=== PATIENT | female | born 1955 | race Caucasian/White ===

== ENCOUNTER 2020-11-18 20:37 | Observation (INO) | payer MEDICARE, MEDICAID ==
[~2020-11-18] VITALS: Ht 167.6 cm; Wt 73.0 kg
--- NOTE | 2020-11-18 21:01 | PHYS DOC ---
Past History Past Medical History: Arthritis, Cancer, High Cholesterol, Hypertension Past Surgical History Lt.mastectomy 2014- cancer General Adult EDM: Chief Complaint: CHEST WALL PAIN HPI: HPI: ".. My Rt. neck and and chest are killing me.. this been going on a couple weeks... constant.. .. maybe total 2 months.. . I seen Dr. Garcia.. she gave me some pain meds..and muscle relaxer.. they have not help.... The chiropractor has not helped either...".. I am really worried about this chest pain..." Patient is a 65 year old female who presents with above hx and complaints of right pleuritic chest pain and back pain since 2 months ago. Has been taking anti-inflammatories and muscle relaxants prescribed by Dr. Garcia with no relie f. Patient does have significant history of :Lt. breast cancer with mastectomy in 2013, pt. also had radiation and chemotherapy. Pt. has hx hypertension, diabetes, elevated cholesterol. No previous cardiac history. No recent trauma. No recent travel. No specific ill contacts. Patient currently rates pain in right shoulder and back as 4-8 out of 10. Pain is worse with movement. Does have some upper neck tenderness and right shoulder scaphoid tenderness.. Does seem to have components of cervical neuropathy. Patient does have increased pain with deep breaths and cough on the right. No rash appreciated area of pain. Patient does have complaints of occasional palpitations. These appear to be PVCs on bedside monitor. Review of Systems: Review of Systems: Constitutional: Denies fever or chills Eyes: Denies change in visual acuity HENT: Denies nasal congestion or sore throat . Complaints of Rt neck pain. Respiratory: Denies cough or shortness of breath Cardiovascular: Complaint of Rt chest wall pain.. GI: Denies abdominal pain, nausea, vomiting, bloody stools or diarrhea : Denies dysuria Musculoskeletal: Some right flank back pain. Some obvious trapezius muscle spasms on the right. Integument: Denies rash Neurologic: Denies headache, focal weakness or sensory changes Endocrine: Denies polyuria or polydipsia Lymphatic: Denies swollen glands Psychiatric: Complaints of anxiety Family History: Family History: Noncontributory to presentation Current Medications: Current Meds: See nursing for home meds Allergies: Allergies: Allergies Coded Allergies Type Severity Reaction Last Updated Verified No Known Drug Allergies 11/18/20 No Physical Exam: PE: Constitutional: Patient reports acute distress, non-toxic appearance. [] HENT: Normocephalic, atraumatic, bilateral external ears normal, oropharynx moist, no oral exudates, nose normal. [] Eyes: PERRLA, EOMI, conjunctiva normal, no discharge. Glasses Neck: Normal range of motion, right trapezius muscle spasm and tenderness, supple, no stridor. [] Cardiovascular:Heart rate regular rhythm, no murmur. The patient [does occasionally have irregular beats which appear to be PVCs on bedside monitor] Lungs & Thorax: Bilateral breath sounds equal apex auscultation [. Has] left mastectomy scar Abdomen: Bowel sounds normal, soft, no tenderness, no masses, no pulsatile masses. Old scar Skin: Warm, dry, no erythema, no rash. Poor turgor Back: No tenderness, some right CVA tenderness. [] Extremities: No tenderness, no cyanosis, no clubbing, ROM intact, no edema. No cording appreciated Neurologic: Alert and oriented X 3, moves all extremities on request, does have distal sensory, no focal deficits noted. [] Psychologic: Affect very anxious, judgement normal, mood normal. [] EKG: EKG: My interpretation EKG shows a sinus rhythm at 79 bpm. Does have occasional PVCs and a right bundle branch block. QT interval is somewhat prolonged at 485 ms and QT intervals 422 ms. Overall morphology not consistent with a STEMI and does not have contralateral changes []20:49 My interpretation of the EKG #2 shows a sinus rhythm 71 bpm mild right bundle branch block no significant interval change from prior EKG. Time 0 122 Radiology/Procedures: Radiology/Procedures: [][address] [address] IMAGING REPORT Signed PATIENT: RADHA GRIFFITHS ACCOUNT: [id number] : 1955 LOCATION: ER AGE: 65 SEX: F EXAM STATUS: REG ER ORD. PHYSICIAN: FLOR ENGEL MD REASON: Pleuritic chest pain, H/O BREAST CA, D-DIMER 0.85 PROCEDURE: CT ANGIOGRAPHY CHEST EXAM: CT ANGIOGRAPHY OF THE CHEST WITH AND WITHOUT CONTRAST. HISTORY: Breast cancer, elevated d-dimer, chest pain. TECHNIQUE: Computed tomographic angiography of the chest was performed before and after the intravenous administration of iodinated contrast. 3-D maximum intensity projections were also performed. One or more of the following individualized dose reduction techniques were utilized for this examination: 1. Automated exposure control. 2. Adjustment of the mA and/or kV according to patient size. 3. Use of iterative reconstruction technique. COMPARISON: None. FINDINGS: Images of the upper abdomen reveal a 2.5 cm cyst in the right kidney. There is diffuse fatty atrophy of the pancreas. Bone windows reveal no suspicious lesions. No pulmonary emboli are identified. There is no aortic dissection or aneurysm. Changes of breast constipation therapy and axillary lymph node dissection are noted on the left. There are no pathologically enlarged mediastinal or axillary lymph nodes. There is no pleural or pericardial effusion. The left ventricle appears at least mildly dilated. A hypoattenuating nodule in the right thyroid lobe measures 1.1 cm. There is a small hiatal hernia. Lung windows reveal no infiltrates. A calcified granuloma is noted in the left upper lobe. IMPRESSION: 1. No pulmonary embolism. No acute process. 2. Small hiatal hernia. 3. 1.1 cm right thyroid nodule. This could be further assessed sonographically if there is persistent concern. Electronically signed by: Daniel Machado MD (11/19/2020 12:48 AM) [facility] DICTATED AND SIGNED BY: TRE MACHADO MD DATE: 11/19/2040 CC: FLOR ENGEL MD; NON,STAFF ~[place] [id number] IMAGING REPORT Signed PATIENT: RADHA GRIFFITHS ACCOUNT: [id number] : 1955 LOCATION: ER AGE: 65 SEX: F EXAM STATUS: REG ER ORD. PHYSICIAN: FLOR ENGEL MD REASON: cp PROCEDURE: PORTABLE CHEST 1V Exam: Chest one view INDICATION: Chest pain TECHNIQUE: Frontal view of the chest Comparisons: None FINDINGS: The cardiomediastinal silhouette and pulmonary vessels are within normal limits. The lung and pleural spaces are clear. Surgical clips of the left axilla noted. IMPRESSION: No acute cardiopulmonary process. Electronically signed by: David Kim MD (11/18/2020 10:51 PM) [facility] DICTATED AND SIGNED BY: DAVID KIM MD DATE: 11/18/20 8175 CC: FLOR ENGEL MD; NON,STAFF ~MTH0 0 Heart Score: HEART Score for Chest Pain: HEART Score for Chest Pain Response (Comments) Value History Moderately Suspicious 1 ECG Nonspecific Repolarizatio 1 Age > 65 2 Risk Factors 1 or 2 Risk Factors 1 Troponin < Normal Limit 0 Total 5 Risk Factors: Risk Factors: DM, Current or recent (<one month) smoker, HTN, HLP, family hist ory of CAD, obesity. Risk Scores: Score 0 - 3: 2.5% MACE over next 6 weeks - Discharge Home Score 4 - 6: 20.3% MACE over next 6 weeks - Admit for Clinical Observation Score 7 - 10: 72.7% MACE over next 6 weeks - Early Invasive Strategies Course & Med Decision Making: Course & Med Decision Making Pertinent Labs and Imaging studies reviewed. (See chart for details) Discussed presentation, testing and treatment plan with Dr. Galeana-admit to his service with cardiology consult. May be a candidate for MRI of the neck to further evaluate cervical neuropathy once cardiac issues clarified. UTI treated with a gram of Rocephin. Impression: 1. Chest Pain 2. DM glucose 174 3. Dysrhythmia-frequent PVCs 4. Cervical neuropathy 5. Elevated D-dimer 0.85 6. Elevated BUN and creatinine 22/1.1 7. UTI 8. Thyroid nodule 9. Hx.Breast Cancer-status post mastectomy on the left, Chemo and Radiation 10.Hx. Elevated cholesterol [] Dragon Disclaimer: Dragon Disclaimer: This electronic medical record was generated, in whole or in part, using a voice recognition dictation system. Dragon Disclaimer This chart was dictated in whole or in part using Voice Recognition software in a busy, high-work load, and often noisy Emergency Department environment. It may contain unintended and wholly unrecognized errors or omissions. FLOR ENGEL MD Nov 18, 2020 21:01
[2020-11-18] MEDS ORDERED: ASPIRIN 325 MG TABLET PO ONE (21:30)
[2020-11-18] MEDS: IV RINGERS SOLUTION,LACTATED 1,000 ML IV SCH (21:58)
[2020-11-18 22:11] LABS: BASO % 1 % (0-3); EOS % 1 % (0-3); HEMATOCRIT 42.9 % (36.0-47.0); HEMOGLOBIN 14.5 g/dL (12.0-15.5); LYMPH # 2.5 x10^3/uL (1.0-4.8); LYMPH % 33 % (24-48); MEAN CORPUSCULAR HEMOGLOBIN 31 pg (25-35); MEAN CORPUSCULAR HGB CONC 34 g/dL (31-37); MEAN CORPUSCULAR VOLUME 90 fL (79-100); MONO # 0.7 x10^3/uL (0.0-1.1); MONO % 9 % (0-9); NEUT # 4.2 x10^3uL (1.8-7.7); NEUT % 57 % (31-73); PLATELET COUNT 249 x10^3/uL (140-400); RED BLOOD COUNT 4.76 x10^6/uL (3.50-5.40); RED CELL DISTRIBUTION WIDTH 13.3 % (11.5-14.5); WHITE BLOOD COUNT 7.4 x10^3/uL (4.0-11.0)
[2020-11-18 22:20] LABS: CALCIUM 9.8 mg/dL (8.5-10.1); CREATININE 1.1 mg/dL (0.6-1.0); GFR 49.5; POTASSIUM 3.5 mmol/L (3.5-5.1)
[2020-11-18 22:23] LABS: BILIRUBIN,URINE NEG (NEG); CLARITY,URINE HAZY; COLOR,URINE YELLOW; GLUCOSE,URINE NEG (NEG); NITRITE,URINE POS (NEG); UROBILINOGEN,URINE 0.2 mg/dL (0.2 mg/dL)
[2020-11-18 22:24] LABS: BACTERIA,URINE MANY /HPF (0-FEW); RBC,URINE OCC /HPF (0-2); SQUAMOUS EPITHELIAL CELL,UR FEW /LPF
[2020-11-18 22:29] LABS: AMPHETAMINE/METHAMPHETAMINE NEG (NEG); BARBITURATES NEG (NEG); BENZODIAZEPINES NEG (NEG); CANNABINOIDS NEG (NEG); COCAINE NEG (NEG); METHADONE NEG (NEG); OPIATES NEG (NEG); PHENCYCLIDINE NEG (NEG)
[2020-11-18 22:32] LABS: ALBUMIN 3.8 g/dL (3.4-5.0); DIRECT BILIRUBIN 0.1 mg/dL (0.0-0.2); MAGNESIUM 1.9 mg/dL (1.8-2.4); TOTAL BILIRUBIN 0.3 mg/dL (0.2-1.0); TOTAL PROTEIN 7.3 g/dL (6.4-8.2)
--- NOTE | 2020-11-18 22:53 | RAD ---
Exam: Chest one view INDICATION: Chest pain TECHNIQUE: Frontal view of the chest Comparisons: None FINDINGS: The cardiomediastinal silhouette and pulmonary vessels are within normal limits. The lung and pleural spaces are clear. Surgical clips of the left axilla noted. IMPRESSION: No acute cardiopulmonary process. Electronically signed by: David Rosales MD (11/18/2020 10:51 PM) [facility]
[2020-11-18] MEDS ORDERED: ENOXAPARIN ** NOTE DOSE ** SYRINGE SQ ONE (23:00)
[2020-11-18] MEDS ORDERED: CONTRAST GIVEN. MC PRN (23:00)
[2020-11-18] MEDS ORDERED: KETOROLAC 30 MG/ML VIAL. IVP ONE (23:00)
[2020-11-18] MEDS ORDERED: cefTRIAXone SODIUM 1 GM VIAL ONE (23:02)
[2020-11-18] MEDS ORDERED: IV NORMAL SALINE 50ML 50 ML ONE (23:02)
[2020-11-18] MEDS ORDERED: IOHEXOL 350 MG/ML 100 ML VIAL. IV ONE (23:30)
--- NOTE | 2020-11-19 00:50 | RAD ---
EXAM: CT ANGIOGRAPHY OF THE CHEST WITH AND WITHOUT CONTRAST. HISTORY: Breast cancer, elevated d-dimer, chest pain. TECHNIQUE: Computed tomographic angiography of the chest was performed before and after the intraveno us administration of iodinated contrast. 3-D maximum intensity projections were also performed. One o r more of the following individualized dose reduction techniques were utilized for this examination: 1. Automated exposure control. 2. Adjustment of the mA and/or kV according to patient size. 3. Use of iterative reconstruction technique. COMPARISON: None. FINDINGS: Images of the upper abdomen reveal a 2.5 cm cyst in the right kidney. There is diffuse fatt y atrophy of the pancreas. Bone windows reveal no suspicious lesions. No pulmonary emboli are identified. There is no aortic dissection or aneurysm. Changes of breast constipation therapy and axillary lymph node dissection are noted on the left. Ther e are no pathologically enlarged mediastinal or axillary lymph nodes. There is no pleural or pericard ial effusion. The left ventricle appears at least mildly dilated. A hypoattenuating nodule in the rig ht thyroid lobe measures 1.1 cm. There is a small hiatal hernia. Lung windows reveal no infiltrates. A calcified granuloma is noted in the left upper lobe. IMPRESSION: 1. No pulmonary embolism. No acute process. 2. Small hiatal hernia. 3. 1.1 cm right thyroid nodule. This could be further assessed sonographically if there is persistent concern. Electronically signed by: Daniel Machado MD (11/19/2020 12:48 AM) [facility]
--- NOTE | 2020-11-19 00:54 | RAD ---
EXAM: CT CERVICAL SPINE WITHOUT CONTRAST. HISTORY: Neck pain. TECHNIQUE: Computed tomography of the cervical spine was performed without intravenous contrast. One or more of the following individualized dose reduction techniques were utilized for this examination: 1. Automated exposure control. 2. Adjustment of the mA and/or kV according to patient size. 3. Use of iterative reconstruction technique. COMPARISON: None. FINDINGS: Straightening of the normal lordosis is likely positional. The craniocervical junction is u nremarkable. No fractures are identified. Degenerative disc disease is mild from C5 through T1. There is no prevertebral soft tissue swelling. At C2-3, there is a small central protrusion. There is no stenosis. At C3-4, there is minimal right uncovertebral osteoarthritis. There is no significant stenosis. At C4-5, there is a small posterior disc bulge. There is no stenosis. At C5-6, there is a small right paracentral protrusion. Uncovertebral osteoarthritis is mild on the r ight. There is mild narrowing of the right lateral recess. At C6-7, there is a small posterior disc-osteophyte complex. Uncovertebral osteoarthritis is moderate bilaterally. Neural foraminal stenosis is mild bilaterally. There is a 1.1 cm hypoattenuating nodule in the right thyroid lobe. IMPRESSION: 1. Small disc protrusions at C2-3 and C5-C6 result in only mild right lateral recess narrowing at C5- 6. 2. Mild degenerative disc disease from C5 through T1. 3. A 1.1 cm right thyroid nodule could be further assessed sonographically if there is persistent con cern. Electronically signed by: Daniel Machado MD (11/19/2020 12:52 AM) [facility]
[2020-11-19] MEDS ORDERED: MORPHINE SULFATE 10 MG/ML SYRINGE. SQ ONE (01:00)
[2020-11-19] MEDS ORDERED: MORPHINE SULFATE 10 MG/ML SYRINGE. SQ PRN (01:45)
[2020-11-19] MEDS ORDERED: ACETAMINOPHEN 325 MG TABLET PO PRN (01:45)
[2020-11-19] MEDS ORDERED: ANTI-COAG MONITOR BY PHARMACY. MC PRN (02:15)
--- NOTE | 2020-11-19 02:26 | EKG ---
[address] [address] Test Date: 2020-11-18 Test Time: 20:49:25 Pat Name: RADHA GRIFFITHS Department: Room: Gender: F [employer]: : 1955 Requested By: FLOR ENGEL Order Number: [id number] Reading MD: Measurements Intervals [place] Rate: 79 P: 138 TN: 176 QRS: 39 QRSD: 96 T: 19 QT: 422 QTc: 485 Interpretive Statements SINUS RHYTHM VENTRICULAR PREMATURE COMPLEX(ES) INCOMPLETE RIGHT BUNDLE BRANCH BLOCK PROLONGED QT ABNORMAL ECG RI6.02 No previous ECG available for comparison
[2020-11-19 02:30] VITALS: BP 172/100
--- NOTE | 2020-11-19 02:30 | NUR ---
The patient, RADHA GRIFFITHS, 65 y/o, F admitted by MARIALUISA RIDER MD, to room 111, was given written information regarding hospital policies, unit procedures and contact persons. Valuables were checked and left with the patient. Pt needs assessed, medications reviewed, medical history discussed and pt oriented to room. Upon arrival pt rated pain 10/10 in right shoulder, "radiating down arm and arm feels numb." Tylenol administered with ice water. Pt vomiting and c/o headache. Zofran administered. Heating pad for shoulder and cold washcloths for face given to pt. Will continue to monitor.
--- NOTE | 2020-11-19 02:34 | EKG ---
[address] [address] Test Date: 2020-11-19 Test Time: 01:22:08 Pat Name: RADHA GRIFFITHS Department: Room: Gender: F [employer]: ULYSSES : 1955 Requested By: FLOR ENGEL Order Number: [id number] Reading MD: Measurements Intervals [place] Rate: 71 P: 0 AL: 192 QRS: 62 QRSD: 94 T: 2 QT: 430 QTc: 473 Interpretive Statements SINUS RHYTHM INCOMPLETE RIGHT BUNDLE BRANCH BLOCK NO SPECIFIC ECG ABNORMALITIES RI6.02 Compared to ECG 11/18/2020 20:49:25 Prolonged QT interval no longer present
[2020-11-19] MEDS: ONDANSETRON PF 4 MG/2 ML VIAL. IVP PRN ×3 (02:41→20:52)
[2020-11-19] MEDS: IV RINGERS SOLUTION,LACTATED 1,000 ML IV SCH (02:42)
[2020-11-19 05:10] VITALS: BP 140/87
[2020-11-19] MEDS ORDERED: CALC500T54 PO (06:35)
[2020-11-19] MEDS ORDERED: ASPI-889 PO (06:35)
[2020-11-19] MEDS ORDERED: HYDR12.572 PO (06:35)
[2020-11-19] MEDS ORDERED: CHOL200044 PO (06:35)
[2020-11-19] MEDS ORDERED: ACET500T68 PO (06:35)
[2020-11-19] MEDS ORDERED: POTA10TA PO (06:35)
[2020-11-19] MEDS ORDERED: ANAS1TAB47 PO (06:35)
[2020-11-19] MEDS ORDERED: PRAV20TA2 PO (06:35)
[2020-11-19] MEDS ORDERED: METO25TA4 PO (06:35)
[2020-11-19] MEDS: ENOXAPARIN ** NOTE DOSE ** SYRINGE SQ SCH ×2 (07:41→20:09)
[2020-11-19] MEDS: METOCLOPRAMIDE HCL 10 MG/2 ML VIAL. IVP SCH ×4 (07:41→20:10)
[2020-11-19] MEDS: ORPHENADRINE CITRATE 60 MG/2 ML VIAL. IV SCH ×2 (07:42→20:11)
[2020-11-19 10:57] VITALS: BP 104/62
[2020-11-19 11:00] LABS: THYROID STIM HORMONE (TSH) 1.436 uIU/mL (0.358-3.740)
[2020-11-19] MEDS: ASPIRIN CHEWABLE 81 MG TABLET. PO SCH (11:13)
[2020-11-19] MEDS ORDERED: ACETAMINOPHEN 500 MG TABLET PO PRN (14:45)
--- NOTE | 2020-11-19 15:01 | RAD ---
EXAM: CT Head without IV contrast INDICATION: Reason: recurrent bouts of nausea and vomiting, dizziness / Spl. Instructions: / History : TECHNIQUE: Multi-detector row CT images were obtained of the head without the use of IV contrast. All CT scans performed at this facility utilize dose optimization techniques as appropriate to the exam, including the following: Automated exposure control and adjustment of the mA and/or KV according to patient size (this includes techniques or standardized protocols for targeted exams where dose is ind ication/reason for exam). COMPARISON: None FINDINGS: BRAIN PARENCHYMA: No evidence of acute intraparenchymal hemorrhage or infarct. No abnormal parenchyma l density or mass. VENTRICLES & EXTRA-AXIAL SPACES: Ventricles are within normal limits. Basilar cisterns are patent. N o pathologic extra-axial fluid collection or mass. ORBITS: Orbital contents are unremarkable. SINUSES: Visualized paranasal sinuses and mastoid air cells are clear. OSSEOUS & SOFT TISSUES: Calvarium and skull base are intact. IMPRESSION: No acute intracranial pathology. Electronically signed by: Ethel Dacosta MD (11/19/2020 2:59 PM) [facility] [place]
--- NOTE | 2020-11-19 15:08 | HP ---
ADMIT DATE: 11/19/2020 HISTORY OF PRESENT ILLNESS: The patient is a 65-year-old female patient who came to the Emergency Room with a complaint of right-sided chest pain and back pain that started about 2 months ago, has been seen by Dr. Garcia and was treated with anti-inflammatory medication, muscle relaxant as well as steroids without any relief. The patient has a history of left breast cancer with mastectomy in 2013 that was subsequently treated with radiation and chemotherapy. She was extensively investigated in the Emergency Room and apparently has elevated D-dimer and therefore, she had had a chest x-ray, which was unremarkable. CT scan of the chest showed no evidence of pulmonary emboli, small hiatal hernia and CT scan of the cervical spine showed small disk protrusion at C2-C3 and C5-C6 with resultant only mild right lateral recess and narrowing at C5-C6, mild degenerative disk disease from C5 through T1. The patient also was admitted and has had 3 sets of troponin that ruled out myocardial infarction. However, as the pain continues and has been there for almost 2 months now, ____ is obviously noncardiac. I decided to do investigate this further as the breast cancer might be significant and she might have metastases. PAST MEDICAL HISTORY: Significant for hypertension, hyperlipidemia as well as breast cancer. PAST SURGICAL HISTORY: Significant with left mastectomy as well as radiation and chemotherapy. She has 2 cysts removed from both feet and she has also colonoscopy. ALLERGIES: She has no known drug allergies. MEDICATIONS: She is currently on anastrozole 1 mg daily, pravastatin sodium 20 mg daily, metoprolol tartrate 25 mg twice a day, aspirin 81 mg once a day, Tylenol 500 mg every 6 hours, calcium carbonate 500 mg daily, potassium chloride 10 mEq once a day, hydrochlorothiazide 25 mg once a day and cholecalciferol (vitamin D3) 50 mcg twice a day. FAMILY HISTORY: She has 6 brothers and 7 sisters, 2 brothers who are , one of COPD and the other of AIDS. Her father at the age of 82 because of Alzheimer disease. Mother is still alive at age 91, and she has also had Alzheimer disease and lives in a half-way. SOCIAL HISTORY: She is , has 2 sons and 1 daughter where her younger son of sarcoma. She does not smoke, drink alcohol or use recreational drugs. 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 REVIEW OF SYSTEMS: The patient denied any blurring of vision, cataract, glaucoma or macular degeneration. Denied any earache, tinnitus or sensorineural deafness. Denied any nosebleeds, stuffy nose or postnasal drip. Denied any sore throat, sore tongue, toothache, hoarseness of voice or difficulty swallowing. Denied any nausea, vomiting, diarrhea or constipation. Denied any hematemesis, melena or hematochezia. Denied any dysuria, frequency or hematuria. Did complain of right-sided chest pain. Denied any cough, phlegm or hemoptysis. Denied any orthopnea or paroxysmal nocturnal dyspnea. Denied any dizziness, lightheadedness, or vertigo. PHYSICAL EXAMINATION: GENERAL: When I examined her, she looked well and was clearly in no apparent respiratory distress. No pallor, jaundice, cyanosis or thyromegaly. No jugular venous distension. No limb edema. VITAL SIGNS: Her heart rate was 75, blood pressure 172/100, temperature 98.2, respiratory rate was 16, and oxygen saturation was 96%. HEAD, EYES, EARS, NOSE AND THROAT: Normocephalic and atraumatic. NECK: Supple. HEART: Showed normal first and second heart sounds. No gallop or murmur. CHEST: Clear to auscultation. No crepitation or rhonchi. ABDOMEN: Distended, soft, nontender. NEUROLOGIC: She was awake, alert, responding appropriately. All cranial nerves intact. EXTREMITIES: She moves extremities without difficulty. She ambulates without assistance or assistive devices. LABORATORY DATA: Showed that her white cell count was 7400, hemoglobin 14.5, hematocrit 43, MCV 90, and platelet count 249,000 with normal manual differential. Her prothrombin time, INR and aPTT normal. D-dimer was 0.85. Serum sodium 143, potassium 3.5, chloride 101, bicarbonate 32, anion gap of 10, BUN 22, creatinine 1.1, estimated GFR was 49 mL per minute. Her glucose 171, calcium was 9.8, magnesium was 1.9. Total bilirubin, AST, ALT were normal. Alkaline phosphatase slightly elevated. Her total protein was 7.3, albumin was 3.8 and lipase 161. She has 3 sets of cardiac enzymes that were negative. Her serum triglycerides 184, total cholesterol 193, LDL cholesterol 101, VLDL was 36, HDL was 56 and the ratio was 3. Her TSH was 1.436. Her urinalysis was essentially unremarkable and toxic screen was essentially negative. ASSESSMENT AND PLAN: In summary, this is a 65-year-old female patient who came to the Emergency Room complaining of right-sided chest pain that has been going on for almost 2 months now and has not responded to anti-inflammatory medication and muscle relaxant. She has 3 sets of cardiac enzymes that ruled out myocardial infarction. Although, her D-dimer was high, there is no evidence of pulmonary emboli, nor there is any abnormality within her chest to explain that. Given the fact that she has had breast cancer, I recommend doing a total body bone scan. I also ordered a CT scan of the head to rule out any brain metastases that might explain why she is having recurrent bouts of nausea, vomiting and abdominal ultrasound. MARIALUISA RIDER MD DR: ANAHI/deborah JOB#: [id number] / [id number]
[2020-11-19 15:44] VITALS: BP 156/73
[2020-11-19] MEDS: CHOLECALCIFEROL (VITAMIN D3) 1,000 UNIT TABLET PO SCH (19:44)
[2020-11-19 20:02] VITALS: BP 149/76
[2020-11-19] MEDS: METOPROLOL TART IMMED RELEASE 25 MG TABLET. PO SCH (20:12)
[2020-11-19] MEDS: ATORVASTATIN CALCIUM 10 MG TABLET. PO SCH (20:12)
[2020-11-19 22:19] VITALS: BP 158/74
[2020-11-20 06:01] VITALS: BP 156/84
[2020-11-20 06:38] LABS: BASO % 1 % (0-3); EOS % 0 % (0-3); HEMATOCRIT 43.7 % (36.0-47.0); HEMOGLOBIN 14.9 g/dL (12.0-15.5); LYMPH # 1.3 x10^3/uL (1.0-4.8); LYMPH % 20 % (24-48); MEAN CORPUSCULAR HEMOGLOBIN 31 pg (25-35); MEAN CORPUSCULAR HGB CONC 34 g/dL (31-37); MEAN CORPUSCULAR VOLUME 90 fL (79-100); MONO # 0.4 x10^3/uL (0.0-1.1); MONO % 6 % (0-9); NEUT # 4.8 x10^3uL (1.8-7.7); NEUT % 74 % (31-73); PLATELET COUNT 277 x10^3/uL (140-400); RED BLOOD COUNT 4.84 x10^6/uL (3.50-5.40); RED CELL DISTRIBUTION WIDTH 12.9 % (11.5-14.5); WHITE BLOOD COUNT 6.6 x10^3/uL (4.0-11.0)
[2020-11-20 06:43] LABS: ALBUMIN 3.8 g/dL (3.4-5.0); ALBUMIN/GLOBULIN RATIO 1.2 (1.0-1.7); CALCIUM 9.7 mg/dL (8.5-10.1); CREATININE 1.1 mg/dL (0.6-1.0); GFR 49.5; POTASSIUM 3.5 mmol/L (3.5-5.1); TOTAL BILIRUBIN 0.6 mg/dL (0.2-1.0); TOTAL PROTEIN 7.1 g/dL (6.4-8.2)
--- NOTE | 2020-11-20 07:48 | PDOC2 ---
CARDIAC CONSULT DATE OF CONSULT DOS: DATE: 11/20/20 TIME: 07:42 REASON FOR CONSULT Reason for Consult Chest pain REFERRING PHYSICIAN Referring Physician Dr. Sandoval SOURCE Source: Chart review, Patient HPI History of Present Illness This is a 65 yo female who presented secondary to right chest and upper back pain. Patient reports this has been constant for the last couple of weeks. Was treated with steroids, muscle relaxers, and antiinflammatories without any significant relief. Saw chiropractor last week and pain improved slightly. Pain then returned so she came into the ED for further evaluation and treatment. Pain seems to improve by laying on her right side. Not worse with deep breathing or with certain movement. Right upper arm was initially numb/tingling, but this has resolved. St cervical spine with small disc protrusions at C2-3 and C5-C6. She denies any associated dizziness, diaphoresis, palpitations, or SOA. Does reports some nausea/vomiting since Friday, which has now resolved. No prior h/o CAD. Does have a history of breast CA s/p right mastectomy in 2013. Underwent chemo and radiation therapy. PAST MEDICAL HISTORY Cardiovascular: HTN, hyperipidemia Heme/Onc: Cancer (breast ) PAST SURGICAL HISTORY Past Surgical History: Other (left mastectomy ) FAMILY HISTORY Family History: Other (Dementia ) SOCIAL HISTORY Smoke: No ALCOHOL: none Drugs: None Lives: with Family CURRENT MEDICATIONS Current Medications Current Medications Aspirin (Kathy Aspirin) 325 mg 1X ONCE PO Last administered on 11/18/20at 21:56; Start 11/18/20 at 21:30; Stop 11/18/20 at 21:31; Status DC Lactated Ringer's 1,000 ml @ 100 mls/hr Q10H IV Last administered on 11/19/20at 02:42; Start 11/18/20 at 21:30; Stop 11/19/20 at 07:29; Status DC Enoxaparin Sodium (Lovenox 80mg Syringe) 80 mg 1X ONCE SQ Last administered on 11/18/20at 23:09; Start 11/18/20 at 23:00; Stop 11/18/20 at 23:01; Status DC Ketorolac Tromethamine (Toradol 30mg Vial) 30 mg 1X ONCE IVP Last administered on 11/18/20at 23:08; Start 11/18/20 at 23:00; Stop 11/18/20 at 23:01; Status DC Ceftriaxone Sodium 1 gm/ Sodium Chloride 50 ml @ 100 mls/hr 1X ONCE IV Last administered on 11/18/20at 23:09; Start 11/18/20 at 23:00; Stop 11/18/20 at 23:29; Status DC Iohexol (Omnipaque 350 Mg/ml) 100 ml 1X ONCE IV Last administered on 11/19/20at 00:00; Start 11/18/20 at 23:30; Stop 11/18/20 at 23:31; Status DC Info (Do NOT chart on this entry -- for MONITORING) 1 each PRN DAILY PRN MC SEE COMMENTS; Start 11/18/20 at 23:00; Stop 11/20/20 at 22:59 Sodium Chloride 50 ml @ As Directed STK-MED ONCE .ROUTE ; Start 11/18/20 at 23:02; Stop 11/18/20 at 23:02; Status DC Ceftriaxone Sodium (Rocephin) 1 gm STK-MED ONCE .ROUTE ; Start 11/18/20 at 23:02; Stop 11/18/20 at 23:02; Status DC Morphine Sulfate (Morphine 10mg Syringe) 10 mg 1X ONCE SQ Last administered on 11/19/20at 01:00; Start 11/19/20 at 01:00; Stop 11/19/20 at 01:01; Status DC Ondansetron HCl (Zofran) 4 mg PRN Q4HRS PRN IVP NAUSEA/VOMITING Last administered on 11/19/20at 20:52; Start 11/19/20 at 01:45; Stop 11/20/20 at 01:44; Status DC Acetaminophen (Tylenol) 650 mg PRN Q4HRS PRN PO FEVER > 100.3'F Last administered on 11/19/20at 02:41; Start 11/19/20 at 01:45; Stop 11/19/20 at 14:55; Status DC Enoxaparin Sodium (Lovenox 80mg Syringe) 80 mg Q12HR SQ Last administered on 11/19/20at 20:09; Start 11/19/20 at 09:00 Morphine Sulfate (Morphine 10mg Syringe) 10 mg QIDPRN PRN SQ pain Last administered on 11/19/20at 06:15; Start 11/19/20 at 01:45 Orphenadrine Citrate (Norflex) 30 mg BID IV Last administered on 11/19/20at 20:11; Start 11/19/20 at 09:00 Aspirin (Aspirin Chewable) 81 mg DAILYWBKFT PO ; Start 11/19/20 at 08:00 Info (Anti-Coagulation Monitoring By Pharmacy) 1 each PRN DAILY PRN MC SEE COMMENTS; Start 11/19/20 at 02:15 Metoclopramide HCl (Reglan Vial) 10 mg QIDACHS IVP Last administered on 11/19/20at 20:10; Start 11/19/20 at 07:30 Acetaminophen (Tylenol) 500 mg PRN Q6HRS PRN PO pain or fever; Start 11/19/20 at 14:45 Anastrozole (Arimidex) 1 mg DAILY PO ; Start 11/20/20 at 09:00 Aspirin (Aspirin Enteric Coated) 81 mg DAILY PO ; Start 11/20/20 at 09:00 Hydrochlorothiazide (Microzide) 25 mg DAILY PO ; Start 11/20/20 at 09:00 Metoprolol Tartrate (Lopressor) 25 mg BID PO Last administered on 11/19/20at 20:12; Start 11/19/20 at 21:00 Calcium Carbonate/ Glycine (Oscal) 500 mg DAILY PO ; Start 11/20/20 at 09:00 Vitamin D (Vitamin D3) 2,000 unit BID PO ; Start 11/19/20 at 21:00 Potassium Chloride (Klor-Con) 10 meq DAILY PO ; Start 11/20/20 at 09:00 Atorvastatin Calcium (Lipitor) 5 mg QHS PO ; Start 11/19/20 at 21:00 Active Scripts Active Reported Acetaminophen 500 Mg Tablet 1 Tab PO PRN Q6HRS PRN 15 Days Calcium (Calcium Carbonate) 500 Mg Tab.chew 500 Mg PO DAILY Aspirin Ec (Aspirin) 81 Mg Tablet.dr 1 Tab PO DAILY D3-2000 (Cholecalciferol (Vitamin D3)) 50 Mcg Capsule 50 Mcg PO BID Arimidex (Anastrozole) 1 Mg Tablet 1 Tab PO DAILY 30 Days K-Tab (Potassium Chloride) 10 Meq Tablet.er 10 Meq PO DAILY Pravastatin Sodium 20 Mg Tablet 1 Tab PO DAILY Metoprolol Tartrate 25 Mg Tablet 1 Tab PO BID Hydrochlorothiazide Capsule (Hydrochlorothiazide) 12.5 Mg Capsule 25 Mg PO DAILY ALLERGIES Allergies: Coded Allergies: No Known Drug Allergies (Unverified , 11/18/20) ROS Review of Systems 14 point ROS conducted with pertinent positives noted above in HPI PHYSICAL EXAM General: Alert, Oriented X3, Cooperative, No acute distress HEENT: Atraumatic, Mucous membr. moist/pink Lungs: Clear to auscultation Heart: Regular rate Abdomen: Soft, No tenderness Extremities: No edema, Normal pulses Skin: No breakdown Neuro: Normal speech, Sensation intact Psych/Mental Status: Mental status NL, Mood NL MUSCULOSKELETAL: Osteoarthritic changes both hands VITALS Vital Signs Vital Signs Date Time Temp Pulse Resp B/P (MAP) Pulse Ox O2 Delivery O2 Flow Rate FiO2 11/20/20 06:01 98.3 88 20 156/84 (108) 95 Room Air LABS LABS Laboratory Tests Test 11/18/20 21:45 11/18/20 21:50 11/19/20 00:34 11/19/20 03:32 Urine Collection Type Unknown Urine Color Yellow Urine Clarity Hazy Urine pH 7.0 Urine Specific [place] 1.020 Urine Protein Neg (NEG-TRACE) Urine Glucose (UA) Neg mg/dL (NEG) Urine Ketones (Stick) Neg mg/dL (NEG) Urine Blood Trace (NEG) Urine Nitrite Pos (NEG) Urine Bilirubin Neg (NEG) Urine Urobilinogen Dipstick 0.2 mg/dL (0.2 mg/dL) Urine Leukocyte Esterase Small (NEG) Urine RBC Occ /HPF (0-2) Urine WBC 5-10 /HPF (0-4) Urine Squamous Epithelial Cells Few /LPF Urine Bacteria Many /HPF (0-FEW) Urine Opiates Screen Neg (NEG) Urine Methadone Screen Neg (NEG) Urine Barbiturates Neg (NEG) Urine Phencyclidine Screen Neg (NEG) Urine Amphetamine/Methamphetamine Neg (NEG) Urine Benzodiazepines Screen Neg (NEG) Urine Cocaine Screen Neg (NEG) Urine Cannabinoids Screen Neg (NEG) Urine Ethyl Alcohol Neg (NEG) White Blood Count 7.4 x10^3/uL (4.0-11.0) Red Blood Count 4.76 x10^6/uL (3.50-5.40) Hemoglobin 14.5 g/dL (12.0-15.5) Hematocrit 42.9 % (36.0-47.0) Mean Corpuscular Volume 90 fL (79-100) Mean Corpuscular Hemoglobin 31 pg (25-35) Mean Corpuscular Hemoglobin Concent 34 g/dL (31-37) Red Cell Distribution Width 13.3 % (11.5-14.5) Platelet Count 249 x10^3/uL (140-400) Neutrophils (%) (Auto) 57 % (31-73) Lymphocytes (%) (Auto) 33 % (24-48) Monocytes (%) (Auto) 9 % (0-9) Eosinophils (%) (Auto) 1 % (0-3) Basophils (%) (Auto) 1 % (0-3) Neutrophils # (Auto) 4.2 x10^3uL (1.8-7.7) Lymphocytes # (Auto) 2.5 x10^3/uL (1.0-4.8) Monocytes # (Auto) 0.7 x10^3/uL (0.0-1.1) Eosinophils # (Auto) 0.0 x10^3/uL (0.0-0.7) Basophils # (Auto) 0.0 x10^3/uL (0.0-0.2) Prothrombin Time 9.4 SEC (9.4-11.4) Prothromb Time International Ratio 0.9 (0.9-1.1) Activated Partial Thromboplast Time < 21 SEC (23-33) D-Dimer (Razia) 0.85 mg/L (0.00-0.50) Sodium Level 143 mmol/L (136-145) Potassium Level 3.5 mmol/L (3.5-5.1) Chloride Level 101 mmol/L (98-107) Carbon Dioxide Level 32 mmol/L (21-32) Anion Gap 10 (6-14) Blood Urea Nitrogen 22 mg/dL (7-20) Creatinine 1.1 mg/dL (0.6-1.0) Estimated GFR (Cockcroft-Gault) 49.5 Glucose Level 171 mg/dL (70-99) Calcium Level 9.8 mg/dL (8.5-10.1) Magnesium Level 1.9 mg/dL (1.8-2.4) Total Bilirubin 0.3 mg/dL (0.2-1.0) Direct Bilirubin 0.1 mg/dL (0.0-0.2) Aspartate Amino Transf (AST/SGOT) 24 U/L (15-37) Alanine Aminotransferase (ALT/SGPT) 36 U/L (14-59) Alkaline Phosphatase 160 U/L (46-116) Creatine Kinase 39 U/L (26-192) Troponin I Quantitative < 0.017 ng/mL (0-0.055) < 0.017 ng/mL (0-0.055) 0.018 ng/mL (0-0.055) DE-Inb-Z-Type Natriuretic Peptide 336 pg/mL (0-124) Total Protein 7.3 g/dL (6.4-8.2) Albumin 3.8 g/dL (3.4-5.0) Triglycerides Level 187 mg/dL (0-150) Cholesterol Level 193 mg/dL (0-200) LDL Cholesterol, Calculated 99 mg/dL (0-100) VLDL Cholesterol, Calculated 37 mg/dL (0-40) Non-HDL Cholesterol Calculated 136 mg/dL (0-129) HDL Cholesterol 57 mg/dL (40-60) Cholesterol/HDL Ratio 3.0 Lipase 161 U/L (73-393) Thyroid Stimulating Hormone (TSH) 1.436 uIU/mL (0.358-3.740) Test 11/20/20 05:50 White Blood Count 6.6 x10^3/uL (4.0-11.0) Red Blood Count 4.84 x10^6/uL (3.50-5.40) Hemoglobin 14.9 g/dL (12.0-15.5) Hematocrit 43.7 % (36.0-47.0) Mean Corpuscular Volume 90 fL (79-100) Mean Corpuscular Hemoglobin 31 pg (25-35) Mean Corpuscular Hemoglobin Concent 34 g/dL (31-37) Red Cell Distribution Width 12.9 % (11.5-14.5) Platelet Count 277 x10^3/uL (140-400) Neutrophils (%) (Auto) 74 % (31-73) Lymphocytes (%) (Auto) 20 % (24-48) Monocytes (%) (Auto) 6 % (0-9) Eosinophils (%) (Auto) 0 % (0-3) Basophils (%) (Auto) 1 % (0-3) Neutrophils # (Auto) 4.8 x10^3uL (1.8-7.7) Lymphocytes # (Auto) 1.3 x10^3/uL (1.0-4.8) Monocytes # (Auto) 0.4 x10^3/uL (0.0-1.1) Eosinophils # (Auto) 0.0 x10^3/uL (0.0-0.7) Basophils # (Auto) 0.0 x10^3/uL (0.0-0.2) Sodium Level 141 mmol/L (136-145) Potassium Level 3.5 mmol/L (3.5-5.1) Chloride Level 101 mmol/L (98-107) Carbon Dioxide Level 29 mmol/L (21-32) Anion Gap 11 (6-14) Blood Urea Nitrogen 15 mg/dL (7-20) Creatinine 1.1 mg/dL (0.6-1.0) Estimated GFR (Cockcroft-Gault) 49.5 BUN/Creatinine Ratio 14 (6-20) Glucose Level 197 mg/dL (70-99) Calcium Level 9.7 mg/dL (8.5-10.1) Total Bilirubin 0.6 mg/dL (0.2-1.0) Aspartate Amino Transf (AST/SGOT) 22 U/L (15-37) Alanine Aminotransferase (ALT/SGPT) 32 U/L (14-59) Alkaline Phosphatase 99 U/L (46-116) C-Reactive Protein 1.0 mg/L (0-3.3) Total Protein 7.1 g/dL (6.4-8.2) Albumin 3.8 g/dL (3.4-5.0) Albumin/Globulin Ratio 1.2 (1.0-1.7) ASSESSMENT/PLAN Assessment/Plan 1. Chest pain, atypical. AMI ruled out 2. Nausea/vomiting; CT head without acute findings. abdominal US today 3. Hypertension; mildly elevated 4. Hyperlipidemia; LDL 99 5. H/o breast CA s/p left mastectomy 6. Elevated d-dimer. CTA negative for PE 7. UTI; as per IM Recommendations Outpatient echo and ischemic evaluation as arranged Follow up in our office with Dr. Bowman as scheduled. CJ WALTER APRN Nov 20, 2020 07:48
[2020-11-20] MEDS: ENOXAPARIN ** NOTE DOSE ** SYRINGE SQ SCH ×2 (08:23→21:04)
[2020-11-20] MEDS: METOCLOPRAMIDE HCL 10 MG/2 ML VIAL. IVP SCH ×4 (08:23→21:04)
[2020-11-20] MEDS: ORPHENADRINE CITRATE 60 MG/2 ML VIAL. IV SCH ×2 (08:24→21:04)
[2020-11-20] MEDS: POTASSIUM CHLORIDE 10 MEQ TABLET.ER. PO SCH (08:30)
[2020-11-20] MEDS: METOPROLOL TART IMMED RELEASE 25 MG TABLET. PO SCH ×2 (08:30→21:05)
[2020-11-20] MEDS: CALCIUM CARBONATE 500 MG TABLET PO SCH (08:30)
[2020-11-20] MEDS: CHOLECALCIFEROL (VITAMIN D3) 1,000 UNIT TABLET PO SCH ×2 (08:30→21:05)
[2020-11-20] MEDS: ASPIRIN ENTERIC COATED 81 MG TABLET.DR. PO SCH (08:30)
[2020-11-20] MEDS: ASPIRIN CHEWABLE 81 MG TABLET. PO SCH (08:30)
[2020-11-20] MEDS: hydroCHLOROthiazide 12.5 MG CAPSULE PO SCH (08:31)
[2020-11-20] MEDS: ANASTROZOLE 1 MG TABLET PO SCH (08:31)
[2020-11-20 10:42] VITALS: BP 153/88
--- NOTE | 2020-11-20 13:04 | RAD ---
EXAM: Limited ABDOMINAL ULTRASOUND. HISTORY: Right shoulder pain and nausea. COMPARISON: None. FINDINGS: Sonographic evaluation of the right upper quadrant abdomen was performed. The liver appears normal in parenchymal echotexture. There are no focal lesions.. Normal directional flow in the main portal vein. The gallbladder is unremarkable without evidence of stones, wall thickening or pericholecystic fluid. There is no sonographic Crocker sign. The common duct measures 4 mm. The visualized portions of the p ancreas reveal no abnormality. The right kidney measures 10.2 x 5.9 x 3.9 cm. Cortical thickness and echogenicity are preserved. The re is no hydronephrosis. There is a superior pole cortical cyst measuring 2.5 x 2.7 x 2.1 cm The visualized portions of the inferior vena cava are grossly patent and normal in caliber. IMPRESSION: 1. Right renal cyst of doubtful clinical significance. Otherwise unremarkable examination of the righ t upper quadrant abdomen. No sonographic evidence of hepatobiliary pathology. Electronically signed by: Ethel Dacosta MD (11/20/2020 1:02 PM) [id number]
[2020-11-20 15:00] VITALS: BP 152/88
--- NOTE | 2020-11-20 18:21 | PN ---
DATE: 11/20/2020 SUBJECTIVE: The patient continued to complaint of pain in her right shoulder, right sided chest wall and posteriorly in the right neck. We have done extensive investigation that was unrevealing and arrangement was made for her to have abdominal ultrasound that was done this morning and showed that the liver appears normal in parenchymal echotexture, there are no focal lesion. Normal directional flow in the main portal vein. The gallbladder is unremarkable without evidence of stones, wall thickening or pericholecystic fluid. There is no sonographic Crocker sign. The common duct measures 4 mm. The visualized portion of the pancreas revealed no abnormality. The right kidney measures 10 x 5 x 3 cm cortical thickness and echogenicity are preserved. There is no hydronephrosis. There is a superior pole cortical cyst measuring 2.5 x 2.7 x 2.1 cm. The visualized portion of the inferior vena cava are grossly patent and normal in caliber. We did arrange for total body bone scan given that she has history of breast cancer. She continued to be on anastrozole. Apparently, the bone scan is scheduled today this evening. When I examined her this afternoon, she looked well and was clearly in no apparent respiratory distress. No pallor, jaundice, cyanosis or thyromegaly. No jugular venous distension. No limb edema. PHYSICAL EXAMINATION: VITAL SIGNS: Her heart rate was 86, blood pressure was 153/88, temperature was 98, respiratory rate was 18 and oxygen saturation was 95%. HEENT: Normocephalic, atraumatic. NECK: Supple. HEART: Showed normal first and second heart sounds. No gallop or murmur. CHEST: Clear to auscultation. No crepitation or rhonchi, ABDOMEN: Distended, soft, nontender. NEUROLOGIC: She is grossly intact. LABORATORY DATA: Lab work this morning showed a white cell count 6,600, hemoglobin 14.9, hematocrit 44, MCV 90 and platelet count 277,000. Her serum sodium was 141, potassium 3.5, chloride 101, bicarbonate 29, anion gap of 11, BUN 15, creatinine 1.1, estimated GFR was 49 mL per minute. Her glucose 197, calcium was 9.7. Total bilirubin, AST, ALT, alkaline phosphatase were normal. Total protein 7.1, albumin was 3.8. ASSESSMENT: Right shoulder pain and right chest wall pain, right neck pain with unrevealing multiple imaging modalities. The patient is scheduled for total body bone scan and if it was unrevealing, then the patient can be discharged home to follow the Cardiology team for outpatient ischemic workup if there is evidence of metastatic disease. We will arrange for her to be followed by the oncologist. MARIALUISA RIDER MD DR: ANAHI/deborah JOB#: [id number] / [id number]
--- NOTE | 2020-11-20 19:25 | RAD ---
Nuclear medicine whole body bone scan History: Right scapula and chest wall pain. Breast cancer. Comparison: CT angiogram chest 11/19/2020. Technique: Examination performed after intravenous administration of 22 mCi Technetium 99m MDP. Imag es of the whole body were obtained in the anterior and posterior projections. Findings: There is focal increased tracer uptake at the medial right clavicle. Mild sclerosis is seen on CT. There is punctate increased tracer uptake near the tip of the right scapula. No correlate is seen on CT. Alternatively the uptake could localize to a right lateral rib. A tiny sclerotic density is noted of the right lateral seventh rib on CT, image 84 of series 4. There is minimal increased tracer uptake of what is probably the L1 vertebral body. There is endplate spurring noted on CT but no loss of vertebral body height or bone lesion. There is increased tracer uptake that is moderate on the right and mild on the left of the L5 vertebr al body. This uptake is nonspecific but in this location is often due to facet hypertrophy. Tracer uptake in pelvic bones is symmetric. Tracer uptake in the extremities is unremarkable. Mild pe riarticular right greater than left shoulder tracer uptake is likely degenerative. Tracer distribution in the soft tissues appears physiologic. Impression: 1. There is increased tracer uptake of the L5 vertebral body on the right and the left. There is mil d increased tracer uptake of what is probably the L1 vertebral body. Recommend correlation with CT jerrod mbar spine. 2. There is focal increased tracer uptake and mild sclerosis of the medial right clavicle. 3. There is punctate increased tracer uptake of a right lateral rib or the tip of the right scapula. A possible correlate for the uptake in the right lateral seventh rib is seen on CT. Electronically signed by: Sanya Winkler MD (11/20/2020 7:22 PM) [facility]
[2020-11-20 20:23] VITALS: BP 157/94
[2020-11-20] MEDS: ATORVASTATIN CALCIUM 10 MG TABLET. PO SCH (21:04)
[2020-11-20 22:35] VITALS: BP 146/97
--- NOTE | 2020-11-21 05:28 | NUR ---
NOTIFIED OF BONE SCAN RESULTS. STATED HE WILL BE IN IN THE MORNING TO REVIEW RESULTS WITH PTS.
[2020-11-21 05:55] VITALS: BP 158/96
[2020-11-21] MEDS: CHOLECALCIFEROL (VITAMIN D3) 1,000 UNIT TABLET PO SCH (08:17)
[2020-11-21] MEDS: POTASSIUM CHLORIDE 10 MEQ TABLET.ER. PO SCH (08:17)
[2020-11-21] MEDS: hydroCHLOROthiazide 12.5 MG CAPSULE PO SCH (08:17)
[2020-11-21] MEDS: CALCIUM CARBONATE 500 MG TABLET PO SCH (08:17)
[2020-11-21] MEDS: METOPROLOL TART IMMED RELEASE 25 MG TABLET. PO SCH (08:18)
[2020-11-21] MEDS: ASPIRIN ENTERIC COATED 81 MG TABLET.DR. PO SCH (08:18)
[2020-11-21] MEDS: ANASTROZOLE 1 MG TABLET PO SCH (08:23)
[2020-11-21] MEDS: ENOXAPARIN ** NOTE DOSE ** SYRINGE SQ SCH (08:23)
[2020-11-21] MEDS: METOCLOPRAMIDE HCL 10 MG/2 ML VIAL. IVP SCH ×2 (08:24→11:30)
[2020-11-21] MEDS: ORPHENADRINE CITRATE 60 MG/2 ML VIAL. IV SCH (08:24)
[2020-11-21 10:29] VITALS: BP 142/90
--- NOTE | 2020-11-21 13:57 | NUR ---
DISCHARGE-IV DC'D AT THIS TIME, TELE DC'D WELL. PT DRESSES INDEPENDENTLY FOR DISCHARGE HOME WITH DAUGHTER. INSTRUCTIONS GIVEN, RX FOR PAIN MEDICATION ET RX FOR OUTPATIENT MRI. EXPLAINED TO PATIENT THAT SHE NEEDS TO CONTACT PCP ABOUT MRI FOR PRIOR AUTHORIZATION. PT AMBULATES WITH STAFF TO FRONT LOBBY FOR DISCHARGE.
--- NOTE | 2020-11-22 12:25 | NUR ---
Infection Control and Prevention: Positive UA w/C+S resulted on [facility] positive for e. Coli ESBL, resistant to the ceftriaxone used to treat while inpatient. Call placed to patient, , permission obtained to fax report/information to her PCP for review. Pt saw PCP today, states that she will follow up and clarify any need for additional treatment. Report copy faxed ([phone]) to Dr. Garcia at [facility]
== END 2020-11-21 14:00 | disposition home or self-care (01) ==
LOC: ER 20:37 → INTOOBSV 11-19 01:30 → 1 SOUTH 11-19 01:30
PROVIDERS: ADMIT Internal Medicine; ATTEND Internal Medicine
DX: R07.89 Other chest pain (principal); C50.919 Malignant neoplasm of unspecified site of unspecified female breast; M54.2 Cervicalgia; M25.511 Pain in right shoulder; I10 Essential (primary) hypertension; I49.3 Ventricular premature depolarization; K44.9 Diaphragmatic hernia without obstruction or gangrene; I49.9 Cardiac arrhythmia, unspecified; M19.90 Unspecified osteoarthritis, unspecified site; E04.1 Nontoxic single thyroid nodule; E11.9 Type 2 diabetes mellitus without complications; E78.00 Pure hypercholesterolemia, unspecified; E78.5 Hyperlipidemia, unspecified; G62.9 Polyneuropathy, unspecified; Z90.11 Acquired absence of right breast and nipple; Z90.12 Acquired absence of left breast and nipple; Z85.3 Personal history of malignant neoplasm of breast; Z92.3 Personal history of irradiation; Z92.21 Personal history of antineoplastic chemotherapy; Z98.890 Other specified postprocedural states; Z79.82 Long term (current) use of aspirin; Z79.899 Other long term (current) drug therapy
CPT/HCPCS: 36415; 70450; 71045; 71275; 72125; 76705; 78306; 80048; 80053; 80061; 80076; 80307; 81001; 82550; 83690; 83735; 83880; 84443; 84484; 85025; 85379; 85610; 85730; 86140; 87077; 87086; 87186; 93005; 96361; 96365; 96372; 96375; 96376; 99285; A9503; G0378; J0696; J1650; J1885; J2270; J2360; J2405; J2765; J7120; G0379

== ENCOUNTER → 2021-05-16 | Outpatient (CLI) | payer MEDICARE, MEDICAID ==
[~2021-05-16] MED LIST: ACET500T68 PO; ANAS1TAB47 PO; ASPI-889 PO; CALC500T54 PO; CHOL200044 PO; HYDR12.572 PO; METO25TA4 PO; POTA10TA PO; PRAV20TA2 PO
--- NOTE | 2021-05-22 17:20 | RAD ---
MG BILAT SCREEN+OLGA 05/16/2021 10:00 AM INDICATION: History of left breast cancer. New baseline examination has prior imaging has been lost. COMPARISON: None available. TECHNIQUE: 3D tomosynthesis was performed in CC and MLO projections. 2D views were obtained from the 3D data. CAD was utilized as needed. FINDINGS: Breast density: Category C: The breats are heterogeneously dense, which may obscure small masses. Right breast: There are no suspicious microcalcifications, masses or areas of architectural distortio n. Left breast: Architectural distortion is identified in the upper outer left breast at middle depth fr om prior breast cancer treatment. Associated architectural distortion is favored to represent posttre atment related changes. IMPRESSION: 1. Negative right mammogram. 2. Benign findings of the left breast secondary to prior breast cancer treatment. BI-RADS category: 2; Benign Recommendations: Recommend annual screening mammography in one year. Electronically signed by: Odalis Peraza MD (05/22/2021 5:18 PM) [id number]
== END ==
LOC: MAMMO 09:43
PROVIDERS: ATTEND Family Medicine
DX: Z12.31 Encounter for screening mammogram for malignant neoplasm of breast (principal)
CPT/HCPCS: 77063; 77067